=== PATIENT | female | born 1960 | race Caucasian/White ===

== ENCOUNTER 2020-07-26 11:28 | Day surgery (SDC) | payer MEDICARE ==
[2020-07-26] MEDS ORDERED: Depo-Medrol 40 MG/ML IM ONE (11:29)
[2020-07-26] MEDS ORDERED: BUPIVACAINE 0.5% VIAL IJ ONE (11:29)
[2020-07-26] MEDS ORDERED: Ketamine HCl 50 MG/ML ONE (13:14)
[2020-07-26] MEDS ORDERED: DIPRIVAN 200 MG/20 ML IV ONE (13:14)
--- NOTE | 2020-07-26 14:27 | XRAY ---
Indication: Right hip injection. Intraoperative fluoroscopy was provided for 19 seconds. Single digital spot image submitted for interpretation demonstrates needle tip lateral to the right femur head. Small amount of contrast injected for needle tip placement. Correlate with intraoperative findings/report.
[2020-07-26] MEDS ORDERED: Lactated Ringers 1,000 ML IV ONE (15:25)
--- NOTE | 2020-07-26 17:17 | XRAY ---
19 seconds of fluoroscopy was used in surgery
== END 2020-07-26 13:41 | disposition home or self-care (01) ==
LOC: SDC-PAIN 11:28
PROVIDERS: ATTEND Psychiatry & Neurology Pain Medicine
DX: M16.11 Unilateral primary osteoarthritis, right hip (principal); M25.551 Pain in right hip; M06.9 Rheumatoid arthritis, unspecified; F41.9 Anxiety disorder, unspecified; Z79.899 Other long term (current) drug therapy
CPT/HCPCS: 20610; 73501; 77002; J1030; J2704; Q9966